=== PATIENT | male | born 1980 | race Caucasian/White ===

== ENCOUNTER 2025-08-28 07:20 | Day surgery (SDC) | payer OTHER ==
[~2025-08-28 07:20] MED LIST: Sodium Chloride 0.9% 10 ML Syringe FLUSH PRN; Sodium Chloride 0.9% 10 ML Syringe FLUSH SCH
[2025-08-28] MEDS: Lactated Ringers 1,000 ML IV SCH (07:40)
[2025-08-28] MEDS ORDERED: propofoL 500 MG/50 ML 50 ML ONE ×2 (08:25→09:31)
[2025-08-28] MEDS ORDERED: Esmolol 100 MG/10 ML SDV ONE (09:02)
[2025-08-28] MEDS ORDERED: Propofol 200 MG/20 ML SDV ONE (09:05)
[2025-08-28] MEDS ORDERED: fentaNYL 100 MCG/2 ML SDV ONE (09:06)
[2025-08-28 12:30] VITALS: BP 128/98; PULSE 80
== END 2025-08-28 10:45 | disposition home or self-care (01) ==
LOC: JD.SDS 07:20
PROVIDERS: ATTEND Surgery
DX: D12.2 Benign neoplasm of ascending colon (principal); K63.89 Other specified diseases of intestine; K57.30 Diverticulosis of large intestine without perforation or abscess without bleeding; K92.1 Melena; E78.00 Pure hypercholesterolemia, unspecified; F17.210 Nicotine dependence, cigarettes, uncomplicated; Z79.899 Other long term (current) drug therapy
CPT/HCPCS: 45385; J2003; J2704; J7120; 00811; J1805; J3010